=== PATIENT | male | born 2000 | race Asian ===

== ENCOUNTER 2018-07-02 01:06 | Emergency (ER) | payer OTHER ==
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
[2018-07-02 03:53] VITALS: BP 111/69
== END 2018-07-02 04:06 | disposition home or self-care (01) ==
DX: S30.22XA Contusion of scrotum and testes, initial encounter (principal); X58.XXXA Exposure to other specified factors, initial encounter; Y92.9 Unspecified place or not applicable; Y99.9 Unspecified external cause status; Y93.89 Activity, other specified